=== PATIENT | male | born 1955 | race Asian ===

== ENCOUNTER 2019-04-15 16:56 | Inpatient (IN) | payer MEDICAID ==
[~2019-04-15] VITALS: Ht 165.1 cm; Wt 76.6 kg
[~2019-04-15 16:56] MED LIST: TNFMISC
[2019-04-15] MEDS ORDERED: HALOPERIDOL 5 MG TABLET PO PRN (19:45)
[2019-04-15 20:03] VITALS: BP 150/74
[2019-04-15 21:29] VITALS: BP 149/78
[2019-04-15] MEDS ORDERED: PNEUMOCOCCAL VACCINE POLYVALENT 0.5 ML VIAL [PPSV23] IM ONE (21:45)
[2019-04-15] MEDS: ZOLPIDEM TARTRATE 5 MG TABLET PO PRN (21:56)
[2019-04-15] MEDS ORDERED: ACETAMINOPHEN 325 MG TABLET PO PRN (22:00)
[2019-04-15] MEDS ORDERED: DEXTROSE 50%-WATER 25 GM/50 ML SYRINGE IVP PRN (22:00)
[2019-04-15] MEDS ORDERED: ALBUTEROL SULFATE HFA 90 MCG/PUFF 8 GM INHALER IH PRN (22:00)
[2019-04-15] MEDS ORDERED: PETROLATUM,WHITE 28 GM JELLY TP PRN (22:00)
[2019-04-15] MEDS ORDERED: MAGNESIUM HYDROXIDE SUSPENSION 30 ML UDCUP PO PRN (22:00)
[2019-04-15] MEDS ORDERED: IBUPROFEN 600 MG TABLET PO PRN (22:00)
[2019-04-15] MEDS ORDERED: LOPERAMIDE HCL 2 MG CAPSULE PO PRN (22:00)
[2019-04-15] MEDS ORDERED: INSULIN LISPRO 100 UNITS/ML SQ PRN (22:00)
[2019-04-15] MEDS ORDERED: ONDANSETRON HCL 4 MG TABLET PO PRN (22:00)
[2019-04-15] MEDS ORDERED: CloNIDine HCL 0.1 MG TABLET PO PRN (22:00)
[2019-04-15] MEDS ORDERED: MAG HYDROX/AL HYDROX/SIMETH ES 30 ML SUSPENSION UDCUP PO PRN (22:00)
[2019-04-15] MEDS ORDERED: BACITRACIN 28.4 GM OINTMENT TP PRN (22:00)
[2019-04-15] MEDS ORDERED: BENZOCAINE/MENTHOL LOZENGE MM PRN (22:00)
[2019-04-16 00:22] VITALS: BP 137/75
[2019-04-16] MEDS ORDERED: GLUCAGON,HUMAN RECOMBINANT 1 MG VIAL IM PRN (05:45)
[2019-04-16 06:51] LABS: GLUCOMETER DEV NAME(LOC) BV2S.; GLUCOSE,POINT OF CARE 112 MG/DL (70-110)
[2019-04-16] MEDS: DOCUSATE SODIUM 100 MG CAPSULE PO SCH (07:50)
[2019-04-16] MEDS: OMEPRAZOLE 20 MG CAPSULE PO SCH (07:50)
[2019-04-16] MEDS: LORazepam 1 MG TABLET PO PRN ×3 (08:07→17:49)
[2019-04-16 08:14] VITALS: BP 141/75
[2019-04-16 08:20] LABS: BASOPHILS % (AUTO) 0.5 % (0.0-2.0); EOSINOPHILS % (AUTO) 1.4 % (1.0-6.0); HEMATOCRIT 43.4 % (41-53); HEMOGLOBIN 14.6 g/dL (13.5-17.5); LYMPHOCYTES # (AUTO) 2.5 K/uL (1.0-4.8); LYMPHOCYTES % (AUTO) 37.9 % (22.0-44.0); MEAN CORPUSCULAR HEMOGLOBIN 31.9 pg (26.0-34.0); MEAN CORPUSCULAR HGB CONC 33.5 G/dL (31.0-37.0); MEAN CORPUSCULAR VOLUME 95 fL (80-100); MONOCYTES # (AUTO) 0.5 K/uL (0.1-1.0); MONOCYTES % (AUTO) 7.3 % (2.0-9.0); NEUTROPHILS # (AUTO) 3.5 K/uL (1.8-7.7); NEUTROPHILS % (AUTO) 52.9 % (40.0-70.0); PLATELET COUNT (AUTO) 252 K/uL (150-450); RED BLOOD CELL COUNT(AUTO) 4.56 MIL/uL (4.50-5.90); RED CELL DISTRIBUTION WIDTH 12.8 % (11.5-14.5)
[2019-04-16 08:41] LABS: HEMOGLOBIN A1C 5.5 % (4.5-6.2)
[2019-04-16 08:58] LABS: APPEARANCE,URINE CLEAR (CLEAR); BILIRUBIN,URINE NEGATIVE (NEGATIVE); GLUCOSE, URINE (UA) 250 mg/dL (NEGATIVE); KETONES,URINE NEGATIVE (NEGATIVE); LEUKOCYTE ESTERASE ,URINE NEGATIVE (NEGATIVE); NITRATE,URINE NEGATIVE (NEGATIVE); OCCULT BLOOD,URINE NEGATIVE (NEGATIVE); PROTEIN,URINE NEGATIVE (NEGATIVE)
[2019-04-16 09:04] LABS: AMPHET/METH SCREEN,URINE NEGATIVE (NEGATIVE); BARBITURATE SCREEN, URINE NEGATIVE (NEGATIVE); BENZODIAZEPINES SCREEN,URINE NEGATIVE (NEGATIVE); CANNABINOID SCREEN,URINE NEGATIVE (NEGATIVE); COCAINE SCREEN,URINE NEGATIVE (NEGATIVE); METHADONE SCREEN, URINE NEGATIVE (NEGATIVE); OPIATE SCREEN,URINE NEGATIVE (NEGATIVE)
[2019-04-16 09:11] LABS: PHENCYCLIDINE SCREEN,URINE NEGATIVE (NEGATIVE)
[2019-04-16 09:13] LABS: ALANINE AMINOTRANSFERASE 9 U/L (12-78); ALBUMIN 3.5 g/dL (3.4-5.0); ALKALINE PHOSPHATASE 64 U/L (46-116); ANION GAP 9 mmol/L (8-16); ASPARTATE AMINOTRANSFERASE 10 U/L (15-37); BILIRUBIN,TOTAL 1.1 mg/dL (0.1-1.0); CALCIUM, TOTAL 8.9 mg/dL (8.8-10.5); CARBON DIOXIDE 25 mmol/L (22-29); CHLORIDE 105 mmol/L (98-107); CHOL/HDL RATIO 4.4 (4.2-7.3); CHOLESTEROL 200 mg/dL (131-200); CREATININE 0.63 mg/dL (0.60-1.30); FREE T4 (FREE THYROXINE) 0.85 ng/dL (0.76-1.46); GLOMERULAR FILTR. RATE CALC > 60 mL/min (>60); GLUCOSE,RANDOM 93 mg/dL (70-110); HDL CHOLESTEROL 45 mg/dL (40-60); LDL CHOL (CALC.) 140 mg/dL (0-130); POTASSIUM 3.9 mmol/L (3.5-5.1); SODIUM SERUM 139 mmol/L (136-145); THYROID STIMULATING HORMONE 2.32 uIU/mL (0.36-3.74); TOTAL PROTEIN, SERUM 6.1 g/dL (6.4-8.2); TRIGLYCERIDES 73 mg/dL (15-150); UREA NITROGEN, BLOOD 12 mg/dL (7-18)
[2019-04-16 09:47] LABS: AMORPHOUS SEDIMENT,UR Many /LPF (None Seen); BACTERIA,URINE None Seen /HPF (None Seen); RBC,URINE None Seen /HPF (0-2); WBC,URINE None Seen /HPF (0-5)
[2019-04-16] MEDS: INSULIN LISPRO 100 UNITS/ML SQ PRN (11:00)
[2019-04-16 11:16] LABS: GLUCOMETER DEV NAME(LOC) BV2S.; GLUCOSE,POINT OF CARE 175 MG/DL (70-110)
[2019-04-16] MEDS: OLANZapine 5 MG RAPDIS TABLET PO SCH (12:56)
[2019-04-16 16:10] VITALS: BP 136/72
[2019-04-16 16:46] LABS: GLUCOMETER DEV NAME(LOC) BV2S.; GLUCOSE,POINT OF CARE 127 MG/DL (70-110)
[2019-04-16 20:12] LABS: GLUCOMETER DEV NAME(LOC) BV2S.; GLUCOSE,POINT OF CARE 124 MG/DL (70-110)
[2019-04-16] MEDS: ZOLPIDEM TARTRATE 5 MG TABLET PO PRN (20:29)
[2019-04-17 01:30] VITALS: BP 133/76
[2019-04-17 06:30] LABS: GLUCOMETER DEV NAME(LOC) BV2S.; GLUCOSE,POINT OF CARE 101 MG/DL (70-110)
[2019-04-17 08:21] VITALS: BP 136/72
[2019-04-17] MEDS: OMEPRAZOLE 20 MG CAPSULE PO SCH (08:29)
[2019-04-17] MEDS: OLANZapine 5 MG RAPDIS TABLET PO SCH (08:29)
[2019-04-17] MEDS: DOCUSATE SODIUM 100 MG CAPSULE PO SCH (08:29)
[2019-04-17 12:04] LABS: GLUCOMETER DEV NAME(LOC) BV2S.; GLUCOSE,POINT OF CARE 128 MG/DL (70-110)
[2019-04-17 16:03] VITALS: BP 114/72
[2019-04-17] MEDS: LORazepam 1 MG TABLET PO PRN (16:16)
[2019-04-17 16:40] LABS: GLUCOMETER DEV NAME(LOC) BV2S.; GLUCOSE,POINT OF CARE 110 MG/DL (70-110)
[2019-04-17 20:27] LABS: GLUCOMETER DEV NAME(LOC) BV2S.; GLUCOSE,POINT OF CARE 126 MG/DL (70-110)
[2019-04-18 00:14] VITALS: BP 129/84
[2019-04-18 06:25] LABS: GLUCOMETER DEV NAME(LOC) BV2S.; GLUCOSE,POINT OF CARE 102 MG/DL (70-110)
[2019-04-18] MEDS: OMEPRAZOLE 20 MG CAPSULE PO SCH (08:17)
[2019-04-18] MEDS: OLANZapine 5 MG RAPDIS TABLET PO SCH (08:17)
[2019-04-18] MEDS: DOCUSATE SODIUM 100 MG CAPSULE PO SCH (08:17)
[2019-04-18 08:31] VITALS: BP 119/80
[2019-04-18 11:55] LABS: GLUCOMETER DEV NAME(LOC) BV2S.; GLUCOSE,POINT OF CARE 112 MG/DL (70-110)
[2019-04-18 16:15] VITALS: BP 129/73
[2019-04-18 16:43] LABS: GLUCOMETER DEV NAME(LOC) BV2S.; GLUCOSE,POINT OF CARE 129 MG/DL (70-110)
[2019-04-18 20:27] LABS: GLUCOMETER DEV NAME(LOC) BV2S.; GLUCOSE,POINT OF CARE 108 MG/DL (70-110)
[2019-04-19 00:12] VITALS: BP 117/76
[2019-04-19 06:54] LABS: GLUCOMETER DEV NAME(LOC) BV2S.; GLUCOSE,POINT OF CARE 125 MG/DL (70-110)
[2019-04-19] MEDS: DOCUSATE SODIUM 100 MG CAPSULE PO SCH (07:57)
[2019-04-19] MEDS: OMEPRAZOLE 20 MG CAPSULE PO SCH (07:57)
[2019-04-19] MEDS: OLANZapine 5 MG RAPDIS TABLET PO SCH (07:58)
[2019-04-19 08:14] VITALS: BP 109/69
[2019-04-19 11:09] LABS: GLUCOMETER DEV NAME(LOC) BV2S.; GLUCOSE,POINT OF CARE 147 MG/DL (70-110)
[2019-04-19 16:04] VITALS: BP 132/78
[2019-04-19 16:36] LABS: GLUCOMETER DEV NAME(LOC) BV2S.; GLUCOSE,POINT OF CARE 178 MG/DL (70-110)
[2019-04-19] MEDS: INSULIN LISPRO 100 UNITS/ML SQ PRN (18:51)
[2019-04-19 20:38] LABS: GLUCOMETER DEV NAME(LOC) BV2S.; GLUCOSE,POINT OF CARE 139 MG/DL (70-110)
[2019-04-20 00:54] VITALS: BP 111/68
[2019-04-20 06:26] LABS: GLUCOMETER DEV NAME(LOC) BV2S.; GLUCOSE,POINT OF CARE 98 MG/DL (70-110)
[2019-04-20] MEDS: DOCUSATE SODIUM 100 MG CAPSULE PO SCH (08:01)
[2019-04-20] MEDS: OLANZapine 5 MG RAPDIS TABLET PO SCH (08:01)
[2019-04-20] MEDS: OMEPRAZOLE 20 MG CAPSULE PO SCH (08:01)
[2019-04-20 08:15] VITALS: BP 121/75
[2019-04-20 11:21] LABS: GLUCOMETER DEV NAME(LOC) BV2S.; GLUCOSE,POINT OF CARE 125 MG/DL (70-110)
[2019-04-20 12:19] VITALS: BP 126/67
[2019-04-20 16:00] VITALS: BP 122/64
[2019-04-20 16:54] LABS: GLUCOMETER DEV NAME(LOC) BV2S.; GLUCOSE,POINT OF CARE 139 MG/DL (70-110)
[2019-04-20 20:26] LABS: GLUCOMETER DEV NAME(LOC) BV2S.; GLUCOSE,POINT OF CARE 133 MG/DL (70-110)
[2019-04-21 00:29] VITALS: BP 140/82
[2019-04-21] MEDS: OLANZapine 5 MG RAPDIS TABLET PO SCH (08:07)
[2019-04-21] MEDS: OMEPRAZOLE 20 MG CAPSULE PO SCH (08:07)
[2019-04-21 08:15] VITALS: BP 132/80
[2019-04-21] MEDS: DOCUSATE SODIUM 100 MG CAPSULE PO SCH (08:55)
[2019-04-21 11:31] LABS: GLUCOMETER DEV NAME(LOC) BV2S.; GLUCOSE,POINT OF CARE 103 MG/DL (70-110)
[2019-04-21 11:31] LABS: GLUCOMETER DEV NAME(LOC) BV2S.; GLUCOSE,POINT OF CARE 111 MG/DL (70-110)
[2019-04-21 16:10] VITALS: BP 137/65
[2019-04-21 16:20] LABS: GLUCOMETER DEV NAME(LOC) BV2S.; GLUCOSE,POINT OF CARE 154 MG/DL (70-110)
[2019-04-21] MEDS: INSULIN LISPRO 100 UNITS/ML SQ PRN (16:31)
[2019-04-21 20:46] LABS: GLUCOMETER DEV NAME(LOC) BV2S.; GLUCOSE,POINT OF CARE 116 MG/DL (70-110)
[2019-04-22 03:57] VITALS: BP 125/81
[2019-04-22 06:41] LABS: GLUCOMETER DEV NAME(LOC) BV2S.; GLUCOSE,POINT OF CARE 103 MG/DL (70-110)
[2019-04-22] MEDS: DOCUSATE SODIUM 100 MG CAPSULE PO SCH (07:54)
[2019-04-22] MEDS: OMEPRAZOLE 20 MG CAPSULE PO SCH (07:54)
[2019-04-22] MEDS: OLANZapine 5 MG RAPDIS TABLET PO SCH (07:54)
[2019-04-22 08:53] VITALS: BP 115/68
[2019-04-22 11:16] LABS: GLUCOMETER DEV NAME(LOC) BV2S.; GLUCOSE,POINT OF CARE 107 MG/DL (70-110)
[2019-04-22 16:07] VITALS: BP 126/75
[2019-04-22 17:01] LABS: GLUCOMETER DEV NAME(LOC) BV2S.; GLUCOSE,POINT OF CARE 131 MG/DL (70-110)
[2019-04-22] MEDS: LORazepam 1 MG TABLET PO PRN (17:33)
[2019-04-22] MEDS ORDERED: OLAN5TAB40 PO (19:00)
[2019-04-22] MEDS: INSULIN LISPRO 100 UNITS/ML SQ PRN (20:23)
[2019-04-22 20:40] LABS: GLUCOMETER DEV NAME(LOC) BV2S.; GLUCOSE,POINT OF CARE 145 MG/DL (70-110)
[2019-04-23 05:39] VITALS: BP 119/69
[2019-04-23 06:26] LABS: GLUCOMETER DEV NAME(LOC) BV2S.; GLUCOSE,POINT OF CARE 88 MG/DL (70-110)
[2019-04-23] MEDS: OMEPRAZOLE 20 MG CAPSULE PO SCH (08:07)
[2019-04-23] MEDS: DOCUSATE SODIUM 100 MG CAPSULE PO SCH (08:07)
[2019-04-23] MEDS: OLANZapine 5 MG RAPDIS TABLET PO SCH (08:07)
[2019-04-23 08:29] VITALS: BP 123/65
[2019-04-23] MEDS: LORazepam 1 MG TABLET PO PRN (15:46)
[2019-04-23 15:55] LABS: GLUCOMETER DEV NAME(LOC) BV2S.; GLUCOSE,POINT OF CARE 109 MG/DL (70-110)
[2019-04-23 16:05] VITALS: BP 129/85
[2019-04-23 20:20] LABS: GLUCOMETER DEV NAME(LOC) BV2S.; GLUCOSE,POINT OF CARE 126 MG/DL (70-110)
[2019-04-24 01:29] VITALS: BP 125/80
[2019-04-24 06:26] LABS: GLUCOMETER DEV NAME(LOC) BV2S.; GLUCOSE,POINT OF CARE 99 MG/DL (70-110)
[2019-04-24] MEDS: DOCUSATE SODIUM 100 MG CAPSULE PO SCH (07:53)
[2019-04-24] MEDS: OLANZapine 5 MG RAPDIS TABLET PO SCH (07:53)
[2019-04-24] MEDS: OMEPRAZOLE 20 MG CAPSULE PO SCH (07:53)
[2019-04-24 08:09] VITALS: BP 134/75
[2019-04-24 09:15] VITALS: BP 131/74
[2019-04-24] MEDS: INSULIN LISPRO 100 UNITS/ML SQ PRN ×4 (12:17→21:22)
[2019-04-24 12:21] LABS: GLUCOMETER DEV NAME(LOC) BV2S.; GLUCOSE,POINT OF CARE 160 MG/DL (70-110)
[2019-04-24 16:14] VITALS: BP 106/67
[2019-04-24 16:41] LABS: GLUCOMETER DEV NAME(LOC) BV2S.; GLUCOSE,POINT OF CARE 148 MG/DL (70-110)
[2019-04-24 20:20] LABS: GLUCOMETER DEV NAME(LOC) BV2S.; GLUCOSE,POINT OF CARE 152 MG/DL (70-110)
[2019-04-25 00:26] VITALS: BP 103/64
[2019-04-25 06:16] LABS: GLUCOMETER DEV NAME(LOC) BV2S.; GLUCOSE,POINT OF CARE 91 MG/DL (70-110)
[2019-04-25] MEDS: OMEPRAZOLE 20 MG CAPSULE PO SCH (08:21)
[2019-04-25] MEDS: DOCUSATE SODIUM 100 MG CAPSULE PO SCH (08:21)
[2019-04-25] MEDS: OLANZapine 5 MG RAPDIS TABLET PO SCH (08:21)
[2019-04-25 08:41] VITALS: BP 139/88
[2019-04-25 12:51] LABS: GLUCOMETER DEV NAME(LOC) BV2S.; GLUCOSE,POINT OF CARE 108 MG/DL (70-110)
[2019-04-25 16:00] VITALS: BP 141/78
[2019-04-25 16:35] LABS: GLUCOMETER DEV NAME(LOC) BV2S.; GLUCOSE,POINT OF CARE 158 MG/DL (70-110)
[2019-04-25 20:51] LABS: GLUCOMETER DEV NAME(LOC) BV2S.; GLUCOSE,POINT OF CARE 137 MG/DL (70-110)
[2019-04-25] MEDS: INSULIN LISPRO 100 UNITS/ML SQ PRN (20:57)
[2019-04-26 00:13] VITALS: BP 126/66
[2019-04-26 06:26] LABS: GLUCOMETER DEV NAME(LOC) BV2S.; GLUCOSE,POINT OF CARE 95 MG/DL (70-110)
[2019-04-26 08:02] VITALS: BP 118/62
[2019-04-26] MEDS: OMEPRAZOLE 20 MG CAPSULE PO SCH (08:07)
[2019-04-26] MEDS: DOCUSATE SODIUM 100 MG CAPSULE PO SCH (08:07)
[2019-04-26] MEDS: OLANZapine 5 MG RAPDIS TABLET PO SCH (09:23)
[2019-04-26 11:20] LABS: GLUCOMETER DEV NAME(LOC) BV2S.; GLUCOSE,POINT OF CARE 123 MG/DL (70-110)
[2019-04-26 16:33] VITALS: BP 125/71
== END 2019-04-26 21:37 | disposition home or self-care (01) | DRG 751 ==
LOC: B2S 18:28
PROVIDERS: ADMIT Psychiatry & Neurology Child & Adolescent Psychiatry; ATTEND Psychiatry & Neurology Child & Adolescent Psychiatry
DX: F29 Unspecified psychosis not due to a substance or known physiological condition (principal); F20.9 Schizophrenia, unspecified; E11.9 Type 2 diabetes mellitus without complications; F41.9 Anxiety disorder, unspecified; G47.00 Insomnia, unspecified; I10 Essential (primary) hypertension; K21.9 Gastro-esophageal reflux disease without esophagitis; K59.00 Constipation, unspecified; F32.9 Major depressive disorder, single episode, unspecified; F17.200 Nicotine dependence, unspecified, uncomplicated; Z28.21 Immunization not carried out because of patient refusal
CPT/HCPCS: 80307; 83036; 84439; 84443; 87081